=== PATIENT | female | born 1995 | race African-American/Black ===

== ENCOUNTER 2024-03-01 01:45 | Emergency (ER) | payer SELFPAY ==
[~2024-03-01] VITALS: Ht 172.7 cm; Wt 56.0 kg
[2024-03-01 01:58] VITALS: BP 128/92; PULSE 122; RESP 20; O2SAT 100
[2024-03-01 01:59] VITALS: O2SAT 99
[2024-03-01] MEDS ORDERED: BO1 TP (02:30)
[2024-03-01 02:47] VITALS: TEMP 97.9
[2024-03-01] MEDS: ACETAMINOPHEN 325MG TABLET PO ONE (02:47)
[2024-03-01] MEDS: BACITRACIN ZINC OINT UDPKT TOP ONE (02:47)
== END 2024-03-01 03:02 | disposition home or self-care (01) ==
LOC: ER 01:45
DX: S30.810A Abrasion of lower back and pelvis, initial encounter (principal); F41.9 Anxiety disorder, unspecified; W18.30XA Fall on same level, unspecified, initial encounter; Y93.89 Activity, other specified; Y92.89 Other specified places as the place of occurrence of the external cause; Y99.8 Other external cause status
CPT/HCPCS: 99283; Z7610